=== PATIENT | male | born 1995 | race African-American/Black ===

== ENCOUNTER 2018-01-17 14:35 | Emergency (ER) | payer OTHER ==
--- NOTE | 2018-01-17 15:34 | RAD ---
LEFT LITTLE FINGER 3 VIEWS: HISTORY: Finger injury. FINDINGS: Extensively comminuted fracture with displacement up to 0.6 cm involves the tuft of the distal phalan x. There is extensive soft tissue laceration with evidence of open fracture. No intraarticular extension. No radiopaque foreign bodies are apparent. IMPRESSION: Extensively comminuted mildly displaced fracture distal phalanx left little finger. POS: [facility]
[2018-01-17] MEDS ORDERED: Lidocaine 2% 10 ML INJ ONE (15:38)
== END 2018-01-17 17:15 | disposition home or self-care (01) ==
LOC: ERS 14:35
DX: S68.627A Partial traumatic transphalangeal amputation of left little finger, initial encounter (principal); F17.210 Nicotine dependence, cigarettes, uncomplicated; W20.8XXA Other cause of strike by thrown, projected or falling object, initial encounter
CPT/HCPCS: 26236; 26755